=== PATIENT | male | born 1995 | race African-American/Black ===

== ENCOUNTER 2019-09-24 10:46 | Emergency (ER) | payer MEDICAID ==
[~2019-09-24] VITALS: Ht 182.9 cm; Wt 74.8 kg
--- NOTE | 2019-09-24 10:58 | NUR ---
ED Nurse Note: PT walked in to ED for C/O pain to right ankle due to falling on his right ankle earlier today.
--- NOTE | 2019-09-24 11:20 | NUR ---
ED Nurse Note: POLO wrap put on to right ankle.
--- NOTE | 2019-09-24 11:28 | Emergency Room Report ---
History of Present Illness General Chief Complaint: Lower Extremity Injury Source: Patient Present Illness HPI 24-year-old male presents with right ankle pain. Patient twisted his ankle while walking [place] the [employer] [place]. Patient denies any other injuries and did ambulate to the ER without assistance. Currently 7 out of 10 worse with movement and nonradiating. Allergies: Coded Allergies: No Known Allergies (Unverified , 09/24/19) Patient History Reviewed Nursing Documentation: PMH: Agreed; PSxH: Agreed Nursing Documentation-PMH Past Medical History: No Stated History Review of Systems All Other Systems: negative except mentioned in HPI Physical Exam Vital Signs Date Time Temp Pulse Resp B/P (MAP) Pulse Ox O2 Delivery O2 Flow Rate FiO2 09/24/19 10:55 98.2 65 17 115/70 (85) 98 Room Air Sp02 EP Interpretation: reviewed, normal General Appearance: well appearing, no apparent distress Head: normocephalic, atraumatic Eyes: bilateral eye PERRL, bilateral eye EOMI ENT: hearing grossly normal, moist mucus membranes Neck: full range of motion, supple Respiratory: lungs clear, normal breath sounds, no wheezing Cardiovascular #1: normal peripheral pulses, regular rate, rhythm, no murmur Musculoskeletal: other - Right ankle mildly tender laterally without any deformity. Full range of motion ambulates without difficulty. Neurologic: alert, oriented x3, no focal defects Skin: normal color, warm/dry Medical Decision Making Diagnostic Impression: Primary Impression: Right ankle sprain ER Course Patient presented for right ankle sprain. Less likely fracture dislocation. Patient ambulatory on arrival. No acute distress. X-ray was not indicated at this time. Patient given ibuprofen in the ER. Compression bandage applied. Patient stable for discharge with outpatient follow-up Last Vital Signs Date Time Temp Pulse Resp B/P (MAP) Pulse Ox O2 Delivery O2 Flow Rate FiO2 09/24/19 10:55 98.2 65 17 115/70 (85) 98 Room Air Disposition: HOME, SELF-CARE Condition: Stable Scripts Ibuprofen* (MOTRIN*) 600 Mg Tablet 600 MG ORAL Q8H PRN for For Pain, #30 TAB 0 Refills Prov: Ruben Noel M.D. 09/24/19 Additional Instructions: patient is instructed to follow-up with her primary care doctor, primary care clinic or [facility] in 1 to 2 days. Patient instructed to return for any worsening symptoms or concerns. Please note that the documentation in this note was used with [employer] dictation technology. Pleae be advised that this may lead to erroneous text due to misinterpretation by the dictation software Ruben Noel M.D. Sep 24, 2019 11:28
[2019-09-24] MEDS ORDERED: IBUPROFEN600 MG ORAL (11:30)
[2019-09-24 11:35] VITALS: BP 120/70
--- NOTE | 2019-09-24 11:35 | NUR ---
ER DISCHARGE NOTE: Patient is cleared to be discharged per ERMD, pt is aox4, on room air, with stable vital signs. pt was given dc and prescription instructions, pt was able to verbalize understanding, pt id band removed without complications. pt is able to ambulate with steady gait. pt took all belongings.
== END 2019-09-24 11:35 | disposition home or self-care (01) ==
LOC: EMR 11:29
DX: S93.401A Sprain of unspecified ligament of right ankle, initial encounter (principal); X50.1XXA Overexertion from prolonged static or awkward postures, initial encounter; Y93.01 Activity, walking, marching and hiking; Y92.524 Gas station as the place of occurrence of the external cause
CPT/HCPCS: 99282